=== PATIENT | female | born 1980 | race Caucasian/White ===

== ENCOUNTER 2018-10-18 11:52 | Emergency (ER) | payer BC ==
[~2018-10-18] VITALS: Ht 157.5 cm; Wt 106.1 kg
[2018-10-18] MEDS ORDERED: IBUPROFEN 600 MG TAB PO STA (12:20)
--- NOTE | 2018-10-18 13:18 | Diagnostic Imaging Report ---
Exam: left ankle 3 views History: pain Comparison: None. Findings: No fracture or malalignment. Joint spaces preserved. Soft tissue swelling. Calcaneal enthesophytes. Impression: No acute osseous abnormality Soft tissue swelling Signed by: Dr. Robert Guillermo M.D. on 10/18/2018 12:49 PM
[2018-10-18 13:53] VITALS: BP 135/80
== END 2018-10-18 13:57 | disposition home or self-care (01) ==
LOC: FSED 11:52
DX: S93.492A Sprain of other ligament of left ankle, initial encounter (principal); X50.1XXA Overexertion from prolonged static or awkward postures, initial encounter; Y92.008 Other place in unspecified non-institutional (private) residence as the place of occurrence of the external cause
CPT/HCPCS: 99283